=== PATIENT | female | born 2000 | race Hispanic/Latino ===

== ENCOUNTER 2024-03-24 09:45 | Emergency (ER) | payer OTHER ==
[~2024-03-24] VITALS: Ht 162.6 cm; Wt 76.2 kg
[2024-03-24] MEDS ORDERED: PRENATAL VITAM1 EAC9 PO (10:32)
[2024-03-24 10:49] LABS: BASOPHILS 0.3 % (0-2); EOSINOPHILS 0.5 % (0-6); HEMATOCRIT 35.8 % (35.0-50.0); HEMOGLOBIN 12.4 g/dL (12.0-18.0); LYMPHOCYTES 13.7 % (24-44); MCHC 34.5 g/dl (30-36); MCV 89.7 fl (81-99); MONOCYTES 5.1 % (0-12); NEUTROPHILS 80.4 % (39-80); PLATELET COUNT 184 K/uL (140-440)
[2024-03-24 11:29] LABS: ALBUMIN 3.3 g/dL (3.4-5.0); ALBUMIN/GLOBULIN RATIO 0.89 (1.1-2.4); ANION GAP 13.8 (7-21); BILIRUBIN, TOTAL 0.4 ng/dL (0.2-1.0); CALCIUM 8.6 mg/dL (8.5-10.1); CREATININE, SERUM 0.5 mg/dL (0.55-1.02); POTASSIUM 3.8 mmol/L (3.5-5.1)
[2024-03-24 11:31] LABS: ABO O; RH POSITIVE
[2024-03-24 11:31] LABS: BILIRUBIN, URINE NEGATIVE (negative); BLOOD/HGB, URINE TRACE-I (Negative); KETONE, URINE NEGATIVE (Negative); LEUK ESTERASE, URINE NEGATIVE (negative); NITRITE, URINE NEGATIVE (negative); PH, URINE 7.5 (5-7)
[2024-03-24 11:37] LABS: EPITHELIAL CELLS, URINE SQUAMOUS 1+ /lpf (0-1+)
[2024-03-24 11:40] LABS: BACTERIA, URINE RARE /hpf (negative); CASTS, URINE NONE SEEN \\lpf; COLLECTION TYPE, URINE CLEAN CATCH; CRYSTALS, URINE NONE SEEN (0-1+); RED BLOOD CELLS, URINE 0-1 /hpf (0-5); REFLEX CULTURE, URINE No (No)
[2024-03-24] MEDS ORDERED: ACETAMINOPHEN 500 MG TAB PO ONE (12:00)
[2024-03-24 12:18] VITALS: BP 116/76
--- OUTSIDE RECORDS SUMMARY | 2024-03-24 12:41 | XMS ---
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 E.DAaron VISIT COUNT (12 MO.) [address] TOTAL 3 NOTE: Visits indicate total known visits. ED/UCC VISIT TRACKING (12 MO.) 03/24/2024 09:47 [facility] [place] TYPE: Emergency COMPLAINT: - VAGINAL BLEEDING 03/09/2024 10:21 [facility] [place] TYPE: Emergency DIAGNOSES: - Antepartum hemorrhage, unspecified, unspecified trimester - VAGINAL BLEEDING 12/06/2023 05:16 [facility] [place] TYPE: Emergency DIAGNOSES: - Dyspnea, unspecified - SHORTNESS OF BREATH INPATIENT VISIT TRACKING (12 MO.) No inpatient visits to display in this time frame [email or web address]
== END 2024-03-24 12:18 | disposition home or self-care (01) ==
LOC: ED 09:45
PROVIDERS: Emergency Medicine
DX: O20.9 Hemorrhage in early pregnancy, unspecified (principal); Z3A.09 9 weeks gestation of pregnancy
CPT/HCPCS: 36415; 76801; 80053; 81001; 84702; 85025; 86900; 86901; 99284-25; A9270